=== PATIENT | female | born 1935 | race Caucasian/White ===

== ENCOUNTER 2022-03-12 11:27 | Emergency (ER) | payer MEDICARE, SELFPAY ==
[2022-03-12 11:36] VITALS: BP 125/80; PULSE 71; RESP 16; TEMP 36.8; O2SAT 98
--- NOTE | 2022-03-12 11:46 | ED.EAR ---
HPI - Ear Problem General Chief complaint: Ear Stated complaint: Ear Pain Time Seen by Provider: 03/12/22 11:46 Source: patient Mode of arrival: ambulatory Limitations: no limitations History of Present Illness HPI Narrative: 86-year-old female presented for complaint of left ear fullness and muffled hearing for over 1 week. She was seen on 03/04 for the same complaint, treated at an urgent care with neomycin eardrops and using Flonase spray. She did not start Zyrtec per instructions. She states that the symptoms are worse. She denies significant pain, tinnitus, dizziness, nausea, fevers or chills. She is scheduled with PCP next week and ENT in April. History of tonsillar cancer. MD Complaint: ear pain Related Data Home Medications Medication Instructions Recorded Confirmed amlodipine 5 mg tablet mg 03/12/22 hydrochlorothiazide 25 mg tablet mg 03/12/22 potassium chloride 10 mEq meq PO 03/12/22 tablet,extended release Allergies Allergy/AdvReac Type Severity Reaction Status Date / Time ampicillin Allergy Unknown Verified 03/12/22 11:46 hydromorphone [From Dilaudid] AdvReac Nausea Verified 03/12/22 11:47 morphine AdvReac Flushing Verified 03/12/22 11:47 Review of Systems Review of Systems: CONSTITUTIONAL: Denies malaise, chills, or fever. EYES: Denies visual changes, redness, or discharge. ENT: Denies rhinorrhea, congestion, sinus pain, and sore throat. Reports ear pressure CARDIOVASCULAR: Denies chest pain, palpitations, or edema. RESPIRATORY: Denies cough or dyspnea. GASTROINTESTINAL: Denies abdominal pain, nausea, vomiting, diarrhea SKIN: Denies rash or itching. MUSCULOSKELETAL: Denies myalgia. NEUROLOGIC: Denies headache. All systems reviewed & are unremarkable except as noted in HPI and below PMFSH Comments At time of signature, agree with nursing past medical, surgical, social and family history. There is no relevant family history pertinent to the presenting complaint Exam Narrative: GENERAL: Well-appearing EYES: conjunctivae clear ENT: Nares clear. Mucous membranes moist. Right TM pearly [place] with dull light reflex; Left TM unable to visualize due to purulent drainage in canal; no tragal tenderness. Oropharynx not erythematous without lesions. Oropharynx normal. no drooling, no hoarseness, no trismus, uvula midline. NECK: Supple. No lymphadenopathy CHEST: Clear to auscultation, breath sounds equal. HEART: Regular rate and rhythm. SKIN: Warm, dry, no rash. NEURO: Alert and oriented x3. PSYCH: Normal mood and affect Course Course Emergency Course: Patient is aware of diagnosis, understands and agrees to treatment plan. Anticipatory guidance given. Patient agrees to follow-up as directed and is aware of reasons to seek care at the emergency department. Portions of this record may have been created with voice recognition software Level of Care: Express Care Visit Vital Signs Vital signs: Vital Signs Temperature 98.2 F 03/12/22 11:36 Pulse Rate 71 03/12/22 11:36 Respiratory Rate 16 03/12/22 11:36 Blood Pressure 125/80 03/12/22 11:36 Pulse Oximetry 98 03/12/22 11:36 Oxygen Delivery Room Air 03/12/22 11:36 Temperature 98.2 F 03/12/22 11:36 Pulse Rate 71 03/12/22 11:36 Respiratory Rate 16 03/12/22 11:36 Blood Pressure 125/80 03/12/22 11:36 Pulse Oximetry 98 03/12/22 11:36 Oxygen Delivery Room Air 03/12/22 11:36 Reviewed Medical Decision Making MDM Narrative Medical decision making narrative: Will change ear drops due to no improvement. Abx for AOM provided if no improvement. Advised supportive measures and s/s to go to the ER. Patient is appropriate for outpatient treatment and follow-up. She is scheduled with pcp and ENT. Differential Diagnosis Differential Diagnosis: Coronavirus, strep pharyngitis, allergic rhinitis, upper respiratory tract infection, sinusitis, rhinosinusitis, nasopharyngitis, viral pharyngitis, otitis media, otitis e
== END 2022-03-12 12:03 | disposition home or self-care (01) ==
PROVIDERS: Emergency Provider Nurse Practitioner Family; PCP Internal Medicine
DX: H60.92 Unspecified otitis externa, left ear (principal); I10 Essential (primary) hypertension
CPT/HCPCS: 99213; G0463